=== PATIENT | female | born 1960 | race Caucasian/White ===

== ENCOUNTER 2017-03-17 23:46 | Emergency (ER) | payer OTHER ==
[2017-03-18 02:02] VITALS: BP 110/69
== END 2017-03-18 02:02 | disposition home or self-care (01) ==
LOC: ED 23:46
DX: L29.9 Pruritus, unspecified (principal)
CPT/HCPCS: J1100

== ENCOUNTER 2017-04-06 04:55 | Emergency (ER) | payer OTHER ==
[2017-04-06 08:23] VITALS: BP 134/81
== END 2017-04-06 08:23 | disposition home or self-care (01) ==
LOC: ED 04:55
DX: R21 Rash and other nonspecific skin eruption (principal)

== ENCOUNTER 2017-04-18 17:20 | Emergency (ER) | payer OTHER ==
[~2017-04-18] VITALS: Ht 154.9 cm; Wt 68.0 kg
[2017-04-18 20:12] VITALS: BP 115/81
== END 2017-04-18 20:12 | disposition home or self-care (01) ==
LOC: ED 17:20
DX: S83.8X1A Sprain of other specified parts of right knee, initial encounter (principal); X50.1XXA Overexertion from prolonged static or awkward postures, initial encounter; Y93.89 Activity, other specified; Y92.89 Other specified places as the place of occurrence of the external cause; Y99.8 Other external cause status

== ENCOUNTER 2017-06-15 18:50 | Emergency (ER) | payer OTHER ==
[~2017-06-15] VITALS: Ht 154.9 cm; Wt 68.9 kg
[2017-06-15 22:51] VITALS: BP 104/72
== END 2017-06-15 22:48 | disposition home or self-care (01) ==
LOC: ED 18:50
DX: M79.604 Pain in right leg (principal)

== ENCOUNTER 2020-10-03 14:47 | Emergency (ER) | payer MEDICAID, SELFPAY ==
[~2020-10-03] VITALS: Ht 154.9 cm; Wt 68.0 kg
[2020-10-03 14:49] VITALS: BP 104/69; Ht 154.9 cm; Wt 68.0 kg
== END 2020-10-03 16:40 | disposition home or self-care (01) ==
LOC: ED 14:47
DX: U07.1 COVID-19 (principal); K08.89 Other specified disorders of teeth and supporting structures; Z98.890 Other specified postprocedural states
CPT/HCPCS: U0003